=== PATIENT | male | born 1980 | race Caucasian/White ===

== ENCOUNTER 2016-05-24 10:32 | Emergency (ER) ==
[2016-05-24 10:37] VITALS: BP 138/75
--- NOTE | 2016-05-24 11:08 | PROVIDER DOCUMENTATION ---
HPI-EENT General - General Chief Complaint: Toothache Stated Complaint: TOOTHACHE Time Seen by Provider: 05/24/16 10:48 Source: patient Allergies/Adverse Reactions: Patient Allergies Allergy/AdvReac Type Severity Reaction Status Date / Time doxorubicin HCl * AdvReac Unknown Verified 05/10/16 00:23 [From Adriamycin] cancer medicine Allergy Severe ANAPHYLAXIS Uncoded 05/10/16 00:23 Home Medications: Home Medication List Medication Instructions Recorded Confirmed Last Taken Type Testosterone Cypionate 1 ml IM DIRECTED 03/19/16 05/10/16 Unknown History Promethazine [Phenergan] 25 mg PO Q6H PRN PRN #20 tablet 05/10/16 Unknown Rx Promethazine [Phenergan] 25 mg DC Q6H PRN PRN #14 supp 05/10/16 Unknown Rx Cephalexin [Keflex] 500 mg PO Q6HR #40 capsule 05/24/16 Unknown Rx Hydrocodone/APAP 5 mg/325 mg 1 each PO Q8H PRN PRN #10 tablet 05/24/16 Unknown Rx [[place]-5] - History of Present Illness-EENT General Nature of Presenting Problem: Pt is 35 y/o M presents to the ED with toothache. Pt states pain on R side upper and lower. Pt state having body aches as well. Pt denies F. EENT Location: reports: dental Quality of Pain: reports: aching Severity: reports: mild Onset/Duration: reports: unsure Timing: reports: still present Prearrival Treatment: Initiated no prearrival treatment Associated Symptoms: reports: other (body ache) Similar Symptoms Previously?: Yes Recently seen or treated by another doctor?: No - Throat/Dental Throat/Dental Problem Symptoms: reports: toothache Throat/Dental Problem Context: denies: recent dental extractions Recently seen a dentist or have an appointment?: No Review of Systems - Adult - REVIEW OF SYSTEMS - ADULT Constitutional: denies: chills, fever Eyes: denies: blurred vision, double vision Ears, Nose, Mouth & Throat: reports: mouth/dental pain (dental). denies: ear pain, nose pain, throat pain Cardiovascular: denies: chest pain, heart murmur, irregular heart rate Respiratory: denies: cough, shortness of breath, wheezing Gastrointestinal: denies: abdominal pain, diarrhea, nausea, vomiting Genitourinary: denies: dysuria, hematuria Musculoskeletal: reports: muscle aches. denies: joint pain, neck pain Integumentary: denies: hives, itching, rash Neurological: denies: dizziness/vertigo, headache/migraines Psychiatric: reports: no symptoms reported Endocrine: reports: no symptoms reported Hematologic/Lymphatic: reports: no symptoms reported Allergic/Immunologic: reports: no symptoms reported All Other Systems: Reviewed and Negative Past History - Adult - PAST MEDICAL HISTORY-ADULT Review of Records: reports: Nursing Assessment Review, Medications Reviewed, Social history reviewed & non-contributory. Major Childhood Illnesses: reports: denies history Cardiovascular: reports: denies history Respiratory: reports: denies history Gastrointestinal: reports: denies history Obstetrical/Gynecological: reports: denies history Genitourinary: reports: denies history Musculoskeletal: reports: chronic pain Neurological: reports: denies history Endocrine/Immune: reports: Leukemia Other Conditions: reports: denies history - PRIOR SURGERIES/PROCEDURES Surgical/Procedure History: reports: reviewed, not pertinent - IMMUNIZATION STATUS Childhood Immunizations: See Nurse Assessment Flu Vaccine: See Nurse Assessment - FAMILY HISTORY Family History: reviewed, not pertinent - SOCIAL HISTORY Smoking: cigarettes, greater than 1 pack/day Provider spent 3-5 mins advising pt. on dangers of tobacco.: Discussed manners to quit use, and f/u contacts for add'l counseling. Substance Use: denies Living Situation: family Physical Exam- EENT - Physical Exam EENT Initial Vital Signs Reviewed: Yes General Appearance: appears well, alert, no apparent distress Eye Exam: bilateral eye: normal inspection, PERRL, EOMI Ear Exam: bilateral ear: auricle normal, canal normal, TM normal Nasal Exam: normal inspection Throat Exam: pharynx normal, dental tenderness Neck: non-tender, full range of motion, supple, normal inspection Respiratory: chest non-tender, lungs clear, normal breath sounds, no pleuratic chest pain, no respiratory distress, no accessory muscle use Cardiovascular: normal peripheral pulses, regular rate, rhythm, no edema, no gallop, no JVD, no murmur Abdominal Exam: normal bowel sounds, non tender, soft, no organomegaly, no pulsatile mass Lymphatic: no adenopathy Back Exam: normal inspection, no CVA tenderness, no vertebral tenderness Extremity: normal range of motion, non-tender, normal gait, normal inspection, no pedal edema, no calf tenderness, normal capillary refill, pelvis stable Integumentary: normal color, normal turgor, warm/dry Neurologic: campus rep II-XII nml as tested, grossly normal, no motor/sensory deficits Psych/Mental Status: normal mood/affect, normal thought content, normal thought process, oriented x 3 Progress - PLAN OF CARE/RESULTS Progress/Plan/Lab Results: Vital Signs - 24 hr 05/24/16 10:35 Temperature 97.8 F Pulse Rate 93 H Respiratory 18 Rate Blood Pressure 138/75 O2 Sat by Pulse 100 Oximetry Orders Category Date Time Status CefTRIAXONE [Rocephin] Med 05/24/16 11:15 Discontinued 1 gm IM NOW ONE Lidocaine 1% Pf [Xylocaine-Mpf 1%] Med 05/24/16 11:15 Discontinued 5 ml INJ NOW ONE Departure - Departure Time of Disposition Order: 11:19 DIAGNOSIS: Toothache Disposition: HOME 01 Certified Medical Emergency: Emergent Condition: Stable Additional Instructions: Follow up with dentist RO. Prescriptions: Cephalexin [Keflex] 500 mg PO Q6HR #40 capsule Hydrocodone/APAP 5 mg/325 mg [[place]-5] 1 each PO Q8H PRN PRN #10 tablet PRN Reason: Pain Referrals: None,PCP [Primary Care Provider] - Attestation - Scribe Verification/Attestation Scribe:: Rebecca Flannery Acting as Scribe for:: Evi Fairbanks Scribe documention review:: This chart was documented by a scribe and accurately reflects the service the provider performed and the decisions made by the provider.
[2016-05-24] MEDS ORDERED: ROCEPHIN IM ONE (11:15)
[2016-05-24] MEDS ORDERED: XYLOCAINE-MPF 1% INJ ONE (11:15)
== END 2016-05-24 12:08 | disposition home or self-care (01) ==
LOC: P.ED 10:32
DX: K08.89 Other specified disorders of teeth and supporting structures (principal); M79.1 Myalgia; G89.29 Other chronic pain; C95.90 Leukemia, unspecified not having achieved remission; F17.210 Nicotine dependence, cigarettes, uncomplicated; Z71.6 Tobacco abuse counseling; Z79.899 Other long term (current) drug therapy
CPT/HCPCS: 96372; J0696

== ENCOUNTER 2016-05-26 19:26 | Emergency (ER) ==
[2016-05-26] MEDS ORDERED: XYLOCAINE 2% VISCOUS MT ONE (20:30)
[2016-05-26] MEDS ORDERED: XYLOCAINE 2% VISCOUS ONE (20:30)
--- NOTE | 2016-05-26 20:32 | PROVIDER DOCUMENTATION ---
HPI-EENT General - General Chief Complaint: Toothache Stated Complaint: TOOTHACHE Time Seen by Provider: 05/26/16 19:57 Source: patient Allergies/Adverse Reactions: Patient Allergies Allergy/AdvReac Type Severity Reaction Status Date / Time doxorubicin HCl * AdvReac Unknown Verified 05/10/16 00:23 [From Adriamycin] cancer medicine Allergy Severe ANAPHYLAXIS Uncoded 05/10/16 00:23 Home Medications: Home Medication List Medication Instructions Recorded Confirmed Last Taken Type Testosterone Cypionate 1 ml IM DIRECTED 03/19/16 05/10/16 Unknown History Promethazine [Phenergan] 25 mg PO Q6H PRN PRN #20 tablet 05/10/16 Unknown Rx Promethazine [Phenergan] 25 mg MT Q6H PRN PRN #14 supp 05/10/16 Unknown Rx Cephalexin [Keflex] 500 mg PO Q6HR #40 capsule 05/24/16 Unknown Rx Hydrocodone/APAP 5 mg/325 mg 1 each PO Q8H PRN PRN #10 tablet 05/24/16 Unknown Rx [[place]-5] Famotidine [Pepcid] 20 mg PO DAILY #20 tablet 05/26/16 Unknown Rx Ketorolac [Toradol] 10 mg PO Q6H PRN PRN #20 tablet 05/26/16 Unknown Rx - History of Present Illness-EENT General Nature of Presenting Problem: 35 y/o WM c/o right upper and lower jaw pain. Was seen here two days ago for the same, given rx for antibiotics and [place]. States pain is no better today. Denies sob, difficultly breathing or difficultly swallowing. Denies fevers or chills. Pain worse with eating. States the [place]'s are not helping as much. Review of Systems - Adult - REVIEW OF SYSTEMS - ADULT Constitutional: reports: no symptoms reported. denies: chills, fever, fatique Eyes: reports: no symptoms reported Ears, Nose, Mouth & Throat: reports: see HPI, mouth/dental pain. denies: ear pain, nose pain, throat pain Cardiovascular: reports: no symptoms reported. denies: chest pain, palpitations Respiratory: reports: no symptoms reported. denies: cough, shortness of breath Gastrointestinal: reports: no symptoms reported. denies: abdominal pain, diarrhea, nausea, vomiting Genitourinary: reports: no symptoms reported. denies: dysuria, discharge, frequency Musculoskeletal: reports: no symptoms reported. denies: muscle aches Integumentary: reports: no symptoms reported. denies: rash Neurological: reports: no symptoms reported. denies: headache/migraines Psychiatric: reports: no symptoms reported Endocrine: reports: no symptoms reported Hematologic/Lymphatic: reports: no symptoms reported Allergic/Immunologic: reports: no symptoms reported All Other Systems: Reviewed and Negative Past History - Adult - PAST MEDICAL HISTORY-ADULT Review of Records: reports: Old Records Reviewed, Nursing Assessment Review, Medications Reviewed Major Childhood Illnesses: reports: denies history Cardiovascular: reports: denies history Respiratory: reports: denies history Gastrointestinal: reports: denies history Genitourinary: reports: denies history Musculoskeletal: reports: chronic pain Neurological: reports: denies history Endocrine/Immune: reports: Leukemia Other Conditions: reports: denies history - PRIOR SURGERIES/PROCEDURES Surgical/Procedure History: reports: reviewed, not pertinent - IMMUNIZATION STATUS Childhood Immunizations: See Nurse Assessment Flu Vaccine: See Nurse Assessment - FAMILY HISTORY Family History: reviewed, not pertinent - SOCIAL HISTORY Smoking: less than 1 pack/day Provider spent 3-5 mins advising pt. on dangers of tobacco.: Discussed manners to quit use, and f/u contacts for add'l counseling. Substance Use: none/never Alcohol Use Frequency: never Physical Exam- EENT - Physical Exam EENT Initial Vital Signs Reviewed: Yes General Appearance: appears well, alert, no apparent distress Eye Exam: bilateral eye: normal inspection, PERRL, EOMI Ear Exam: bilateral ear: auricle normal, canal normal, TM normal Throat Exam: normal mouth inspection, pharynx normal, dental tenderness, other ( evidence of grinding teeth) Mouth,Throat: 1 - cavitation below filling Neck: non-tender, full range of motion, supple, normal inspection. negative: lymphadenopathy Respiratory: chest non-tender, lungs clear, normal breath sounds, no pleuratic chest pain, no respiratory distress, no accessory muscle use. negative: respiratory distress, decreased breath sounds, accessory muscle use, crackles, rales, rhonchi, wheezing Cardiovascular: regular rate, rhythm Extremity: normal gait Integumentary: normal color, normal turgor, warm/dry Neurologic: grossly normal, no motor/sensory deficits Psych/Mental Status: normal mood/affect, normal thought content, normal thought process, oriented x 3 Departure - Departure Time of Disposition Order: 20:30 DIAGNOSIS: Toothache Disposition: HOME 01 Certified Medical Emergency: Emergent Condition: Stable Additional Instructions: Follow up with Dr. Whyte, your dentist ED Follow Up Instructions: You have been treated by a care provider in the Emergency Department. These instructions are being provided to you so you can have an understanding of how to care for yourself upon discharge. Upon discharge from the Emergency Department, you are responsible for making arrangements for follow-up care by a physician of your choice. Take all prescribed medications as directed. Return to the Emergency Department immediately for any new or worsening symptoms. You may call the Physician Referral phone number at [phone] to obtain a list of Physicians who are taking new patients. Prescriptions: Famotidine [Pepcid] 20 mg PO DAILY #20 tablet Ketorolac [Toradol] 10 mg PO Q6H PRN PRN #20 tablet PRN Reason: Pain Referrals: None,PCP [Primary Care Provider] - Attestation - Physician/ LOLITA Attestation Patient care was provided by Advanced Practice Provider:: Yes Advanced Practice Provider:: Katerine Gunter Advanced Practice Provider documentation review:: The Mid-level provider documentation, treatment plan and medical decision making was reviewed by the physician who agrees with all treatment and medical decision making by the MLP.
[2016-05-26 21:16] VITALS: BP 117/78
== END 2016-05-26 21:16 | disposition home or self-care (01) ==
LOC: P.ED 19:26
DX: K08.89 Other specified disorders of teeth and supporting structures (principal); K02.9 Dental caries, unspecified; C95.90 Leukemia, unspecified not having achieved remission; G89.29 Other chronic pain; F17.210 Nicotine dependence, cigarettes, uncomplicated; Z71.6 Tobacco abuse counseling; Z79.899 Other long term (current) drug therapy
CPT/HCPCS: 99282

== ENCOUNTER 2016-06-12 21:30 | Emergency (ER) ==
--- NOTE | 2016-06-12 22:34 | PROVIDER DOCUMENTATION ---
HPI-General Adult - General Chief Complaint: General Adult Stated Complaint: SLEEP APNEA Time Seen by Provider: 06/12/16 22:15 Source: patient Allergies/Adverse Reactions: Patient Allergies Allergy/AdvReac Type Severity Reaction Status Date / Time doxorubicin HCl * AdvReac Unknown Verified 06/12/16 21:36 [From Adriamycin] cancer medicine Allergy Severe ANAPHYLAXIS Uncoded 06/12/16 21:36 Home Medications: Home Medication List Medication Instructions Recorded Confirmed Last Taken Type Testosterone Cypionate 1 ml IM DIRECTED 03/19/16 06/12/16 Unknown History Acetaminophen/Diphenhydramine 1 each PO Q4-6H PRN PRN #20 tablet 06/12/16 Unknown Rx [Percogesic 325-12.5 mg Tablet] - History of Present Illness -Gen Adult Nature of Presenting Problems: Pt is a 35 y/o M c chief compliant of insomnia and sleep disturbances due to his irregular work schedule. Pt states that when he works hourly shift he goes through long periods of insomnia that are followed by anxiety and fatigue. Pt is at the ER requesting a work modification excuse to be on day shifts so that he can have regular sleep. Pt is in no distress. Review of Systems - Adult - REVIEW OF SYSTEMS - ADULT Constitutional: reports: no symptoms reported. denies: chills, fatique Eyes: reports: no symptoms reported. denies: blurred vision, double vision Ears, Nose, Mouth & Throat: reports: no symptoms reported. denies: ear pain, nose pain, throat pain Cardiovascular: reports: no symptoms reported. denies: chest pain, orthopnea Respiratory: reports: no symptoms reported. denies: cough, shortness of breath Gastrointestinal: reports: no symptoms reported. denies: abdominal pain, nausea Genitourinary: reports: no symptoms reported. denies: discharge, frequent UTI's , hematuria Musculoskeletal: reports: no symptoms reported. denies: joint pain, joint swelling Integumentary: reports: no symptoms reported. denies: hives, itching Neurological: reports: no symptoms reported. denies: numbness, paresthesia Psychiatric: reports: anxiety, depression, panic attacks. denies: emotional problems Endocrine: reports: no symptoms reported. denies: cold intolerance, heat intolerance Hematologic/Lymphatic: reports: no symptoms reported. denies: blood clots, low blood count Allergic/Immunologic: reports: no symptoms reported. denies: allergic reactions , food allergy All Other Systems: Reviewed and Negative Past History - Adult - PAST MEDICAL HISTORY-ADULT Review of Records: reports: Old Records Reviewed, Nursing Assessment Review, Medications Reviewed, Social history reviewed & non-contributory. Major Childhood Illnesses: reports: denies history Cardiovascular: reports: denies history Respiratory: reports: denies history Gastrointestinal: reports: denies history Obstetrical/Gynecological: reports: denies history Genitourinary: reports: denies history Musculoskeletal: reports: chronic pain Neurological: reports: denies history Psychiatric: reports: anxiety, other (insomnia) Endocrine/Immune: reports: Leukemia Other Conditions: reports: denies history - PRIOR SURGERIES/PROCEDURES Surgical/Procedure History: reports: reviewed, not pertinent - IMMUNIZATION STATUS Childhood Immunizations: See Nurse Assessment Flu Vaccine: See Nurse Assessment - FAMILY HISTORY Family History: reviewed, not pertinent - SOCIAL HISTORY Smoking: cigarettes Provider spent 3-5 mins advising pt. on dangers of tobacco.: Discussed manners to quit use, and f/u contacts for add'l counseling. Substance Use: none/never Alcohol Use Frequency: never Living Situation: family Physical Exam-General - PHYSICAL EXAM-ADULT Initial Vital Signs Reviewed: Yes - CONSTITUTIONAL General Appearance: appears well, alert, no apparent distress - EYES Eyes: PERRL/EOMI, pink conjunctivae - HEAD, EARS, NOSE, MOUTH & THROAT HENMT: normocephalic/atraumatic, moist mucous membranes, normal ENT inspection - NECK Neck: non-tender - RESPIRATORY Respiratory: chest non-tender, lungs clear, normal breath sounds - CARDIOVASCULAR Cardiovascular: normal peripheral pulses, regular rate, rhythm, no edema - GASTROINTESTINAL (ABDOMEN) Abdominal Exam: normal bowel sounds, non tender, soft - LYMPHATIC Lymphatic: no adenopathy - MUSCULOSKELETAL Back Exam: normal inspection, no CVA tenderness, no vertebral tenderness Extremity: normal range of motion, non-tender, normal gait - SKIN Integumentary: normal color, normal turgor, warm/dry - NEUROLOGIC Neurologic: grossly normal, no motor/sensory deficits - PSYCHIATRIC Psych/Mental Status: normal mood/affect, normal thought content, normal thought process, oriented x 3, anxious Progress - PLAN OF CARE/RESULTS Progress/Plan/Lab Results: Vital Signs - 24 hr 06/12/16 21:33 Temperature 97.5 F L Pulse Rate 79 Respiratory 17 Rate Blood Pressure 130/82 O2 Sat by Pulse 99 Oximetry Departure - Departure Time of Disposition Order: 22:36 DIAGNOSIS: Sleep disturbances Insomnia Qualifiers: Insomnia type: unspecified Qualified Code(s): G47.00 - Insomnia, unspecified Disposition: HOME 01 Certified Medical Emergency: Emergent Condition: Stable Additional Instructions: ED Follow Up Instructions: You have been treated by a care provider in the Emergency Department. These instructions are being provided to you so you can have an understanding of how to care for yourself upon discharge. Upon discharge from the Emergency Department, you are responsible for making arrangements for follow-up care by a physician of your choice. Take all prescribed medications as directed. Return to the Emergency Department immediately for any new or worsening symptoms. You may call the Physician Referral phone number at [phone] to obtain a list of Physicians who are taking new patients. Prescriptions: Acetaminophen/Diphenhydramine [Percogesic 325-12.5 mg Tablet] 1 each PO Q4-6H PRN PRN #20 tablet PRN Reason: Pain Forms: Return to School/Parent Work Attestation - Physician/ LOLITA Attestation Patient care was provided by Advanced Practice Provider:: Yes Advanced Practice Provider:: Hal Lu Advanced Practice Provider documentation review:: The Mid-level provider documentation, treatment plan and medical decision making was reviewed by the physician who agrees with all treatment and medical decision making by the MLP.
[2016-06-12 23:01] VITALS: BP 126/72
== END 2016-06-12 23:00 | disposition home or self-care (01) ==
LOC: P.ED 21:30
DX: G47.00 Insomnia, unspecified (principal); G89.29 Other chronic pain; F17.210 Nicotine dependence, cigarettes, uncomplicated; Z71.6 Tobacco abuse counseling; Z85.6 Personal history of leukemia
CPT/HCPCS: 99282